=== PATIENT | male | born 1970 | race Caucasian/White ===

== ENCOUNTER 2017-03-17 14:36 | Emergency (ER) | payer OTHER ==
[~2017-03-17 14:36] MED LIST: CLARITIN; FLONASE
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
[2017-03-17] MEDS ORDERED: Ondansetron 8 mg ODT Tablet PO ONE (14:50)
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
[2017-03-17] MEDS ORDERED: HYDROcodone-APAP 5-325 mg Tablet PO ONE (15:20)
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
[2017-03-17] MEDS ORDERED: HYDR-4003 PO (16:46)
== END 2017-03-17 17:04 | disposition home or self-care (01) ==
LOC: SED 14:36
DX: S92.191A Other fracture of right talus, initial encounter for closed fracture (principal); S06.0X9A Concussion with loss of consciousness of unspecified duration, initial encounter; S92.001A Unspecified fracture of right calcaneus, initial encounter for closed fracture; S92.211A Displaced fracture of cuboid bone of right foot, initial encounter for closed fracture; S80.811A Abrasion, right lower leg, initial encounter; V28.0XXA Motorcycle driver injured in noncollision transport accident in nontraffic accident, initial encounter; Y92.410 Unspecified street and highway as the place of occurrence of the external cause; Y93.55 Activity, bike riding; Y99.8 Other external cause status; R07.9 Chest pain, unspecified